=== PATIENT | male | born 1945 | race Caucasian/White ===

== ENCOUNTER 2016-05-18 19:50 | Observation (INO) | payer MEDICARE ==
[2016-05-18] MEDS ORDERED: Lidocaine 2% JELLY* 6 ML JELLY TOPICAL ONE (21:38)
[2016-05-18] MEDS ORDERED: Lidocaine 2% JELLY* 10 ML JELLY TOPICAL ONE (21:39)
[2016-05-18] MEDS ORDERED: Morphine INJ* 4 MG/ML 1 ML SYRINGE IV ONE (21:48)
[2016-05-18] MEDS ORDERED: Ondansetron INJ* 2 MG/ML VIAL IV ONE (21:48)
[2016-05-18] MEDS ORDERED: Al Hydrox/Mg Hydrox/Simet LIQ* 30 ML UDC PO ONE (22:09)
[2016-05-18] MEDS ORDERED: Lidocaine 2% VISCOUS* 15 ML UDC PO ONE (22:09)
[2016-05-18 22:15] LABS: Hematocrit 32 % (42-52); Hemoglobin 10.2 g/dl (14.0-18.0); Mean Corpuscular HGB Conc 32 g/dl (31-36); Mean Corpuscular Hemoglobin 24 pg (27-31); Mean Corpuscular Volume 75 fL (80-94); Mean Platelet Volume 7 um3 (7.4-10.4); Red Blood Count 4.26 10^6/ul (4.0-5.4); Red Cell Distribution Width 16 % (10.5-15); White Blood Count 13.9 10^3/ul (3.5-10.8)
[2016-05-18 22:30] LABS: Albumin 3.7 g/dL (3.2-5.2); BUN/Creatinine Ratio 16.4 (8-20); Calcium 8.4 mg/dL (8.6-10.3); EGFR African American 84.9 (>60); Globulin 2.5 g/dL (2-4); Total Bilirubin 0.8 mg/dL (0.2-1.0); Total Protein 6.2 g/dL (6.4-8.9)
[2016-05-18] MEDS ORDERED: NS 0.9% 1000 ML* 1,000 ML IV ONE (22:34)
[2016-05-18] MEDS ORDERED: Aspirin TAB* 325 MG PO ONE (22:34)
[2016-05-18] MEDS ORDERED: Potassium Chlor TAB* 20 MEQ TAB.ER PO ONE (22:36)
[2016-05-19 01:20] LABS: Urine Bacteria 1+ (Absent); Urine Bilirubin Negative (Negative); Urine Glucose Negative (Negative); Urine Nitrite Negative (Negative)
[2016-05-19] MEDS: Heparin VIAL(*) 5000 UNITS/ML VIAL (FIVE THOUSAND) SUBCUT SCH ×2 (05:26→14:01)
--- NOTE | 2016-05-19 09:23 | HP ---
HISTORY AND PHYSICAL: DATE OF ADMISSION: 05/19/16 PRIMARY CARE PHYSICIAN: Dr. Dieter Monroe. CHIEF COMPLAINT: Chest pain. HISTORY OF PRESENT ILLNESS: The patient is a 71-year-old gentleman, who actually came to the hospital today after suffering significant urinary retention. Apparently, he just had a procedure done at [facility] and upon getting home, he started developing significant pain in his penis. He came to the ER and was found to have urinary retention, where he received a Nunez and the pain was relieved. However, while lying, he developed epigastric discomfort. He felt it was burning pain and could not even say it was really pain and could not quantify on a scale of 0 to 10 and it was so insubstantial. Furthermore, when they even tried to give him a GI cocktail, the pain resolved so quickly on its own. He denied any associated symptoms, no shortness of breath, no sweating , no palpitations, no radiation. He says it is similar to the discomfort he gets when he has to take Pepcid for it. PAST MEDICAL HISTORY: Significant for bladder tumor being removed at [facility] 2 days ago, urinary retention that he just had, hyperlipidemia, hypertension, and hemochromatosis. CURRENT MEDICATIONS: 1. Losartan/hydrochlorothiazide 50/12.5 one tablet daily. 2. Pravastatin 40 mg in the evening. 3. Aspirin 81 mg daily. 4. Naproxen 500 mg twice daily. ALLERGIES: He has an allergy/adverse reaction to AMOXICILLIN, CIPROFLOXACIN, and LISINOPRIL. FAMILY HISTORY: Mother at 39 of uterine cancer. Father at 83 of natural causes. SOCIAL HISTORY: Quit tobacco 55 years ago, occasional alcohol, and no recreational drug use. He is retired. 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 He is . His , Pamela Almendarez, is his healthcare proxy. He has 3 children. REVIEW OF SYSTEMS: A 14-point review of systems was completed with the patient. All pertinent positives and negatives are in the history of present illness, otherwise it is negative. PHYSICAL EXAMINATION GENERAL: A pleasant gentleman, lying in bed, in no acute distress. VITAL SIGNS: Temperature 98.8 degrees, heart rate 72 beats per minute, respiratory rate 16 breaths per minute, pulse ox 99%, and blood pressure 184/88. HEENT: Normocephalic, atraumatic. Pupils are equal, round, and reactive to light. Moist mucous membranes. NECK: Supple. No JVD, bruits, palpable thyroid, or lymphadenopathy. CHEST: Clear to auscultation and percussion bilaterally. CARDIOVASCULAR: S1, S2 appreciated. Regular rate and rhythm. ABDOMEN: Positive bowel sounds in all 4 quadrants. Soft, nontender, and nondistended. EXTREMITIES: No cyanosis, clubbing, or edema. NEURO: Alert and oriented x3. Moves all extremities. SKIN: No rashes or abnormalities. DIAGNOSTIC STUDIES/LAB DATA: White count 13.9, hemoglobin 10.2, hematocrit 32 , and platelets 234. Sodium 124, potassium 3.0, chloride 91, CO2 24, BUN 18, creat 1.10, and glucose is 114. Urinalysis is +1 wbc's. EKG shows sinus rhythm at 70 beats per minute, normal axis, flipped T's in V3 through V6, otherwise nonspecific ST-T wave changes. ASSESSMENT AND PLAN: 1. Epigastric/chest pain: I think it is highly unlikely this is cardiac in etiology especially the way the patient describes it. It is very atypical. However, we will keep him in the hospital, cycle troponins, and rule him out. If it is negative, he can likely be discharged as early as tomorrow morning and follow up with his PCP for possible cardiac evaluation as an outpatient. 2. Urinary retention: Should discontinue Nunez in the morning and make sure the patient can void on his own. 3. Hypertension: Blood pressure is somewhat high, continue Hyzaar and hopefully the patient will improve, would adjust medication accordingly if necessary. 4. Hyperlipidemia: Continue Pravachol. 5. DVT prophylaxis: Heparin subcu. 6. The patient is a full code. TIME SPENT: Over 75 minutes was spent on this H and P, more than 40 minutes of which was spent in direct [id number] contact with the patient in evaluation, physical exam, counseling, and coordination of care. CC: Dr. Dieter Monroe * [id number]/[facility] #: [id number] MTDD
[2016-05-19 12:37] VITALS: BP 129/68
[2016-05-19 12:48] LABS: BUN/Creatinine Ratio 12.1 (8-20); Calcium 9.1 mg/dL (8.6-10.3); EGFR African American 87.6 (>60); EGFR Non-African American 68.1 (>60); Potassium 3.6 mmol/L (3.5-5.0)
[2016-05-19] MEDS ORDERED: Losartan TAB* 25 MG PO SCH (13:00)
[2016-05-19] MEDS ORDERED: Hydrochlorothiazide TAB* 25 MG PO SCH (13:00)
--- NOTE | 2016-05-19 14:27 | PN ---
Subjective Date of Service: 05/19/16 Interval History: Mr. Almendarez states that he feels well other than feeling anxious about being in the hospital. He denies chest pain, SOB, nausea, or abdominal pain. Objective Active Medications: Heparin Sodium (Porcine) (Heparin Vial(*)) 5,000 units SUBCUT Q8HR ROBERT Hydrochlorothiazide (Hydrodiuril Tab*) 12.5 mg PO DAILY ROBERT Losartan Potassium (Cozaar Tab*) 50 mg PO DAILY ROBERT Vital Signs 05/19/16 05/19/16 05/19/16 01:30 03:07 07:58 Temperature 97.8 F 98.4 F 98.6 F Pulse Rate 71 75 57 Respiratory 17 20 16 Rate Blood Pressure 133/59 148/69 129/60 (mmHg) O2 Sat by Pulse 96 96 97 Oximetry 05/19/16 11:16 Temperature Pulse Rate 60 Respiratory 18 Rate Blood Pressure 129/68 (mmHg) O2 Sat by Pulse 96 Oximetry Oxygen Devices in Use Now: None Appearance: Male lying in bed in NAD Respiratory: Symmetrical Chest Expansion and Respiratory Effort, Clear to Auscultation Cardiovascular: NL Sounds; No Murmurs; No JVD, No Edema Abdominal: NL Sounds; No Tenderness; No Distention Extremities: No Edema Skin: No Rash or Ulcers Neurological: Alert and Oriented x 3, NL Muscle Strength and Tone Nutrition: Taking PO's Result Diagrams: 05/18/16 22:00 05/19/16 12:22 Assess/Plan/Problems-Billing Assessment: Mr. Almendarez is a 71 yo male with a PMH of hypertension and hyperlipidemia with recent resection of bladder tumor who was admitted on 05/18/16 with urinary retention, brief epigastric pain, and EKG changes with T wave inversions in the V waves. - Patient Problems (1) Acute electrocardiogram changes Comment: T wave changes are non-dynamic, unchanged since admission though they are a change from 2013. Patient's trops are 0.00 x 3. He is asymptomatic. Recommend follow up with stress test outpatient. I offered to have stress testing here at the hospital but patient prefers to follow up at [place] through his PCP, Dr. Monroe. Continue home aspirin. (2) Epigastric abdominal pain Comment: A momentary discomfort in the ED. Patient states discomfort was exactly the same as his chronic heartburn. Plan to continue omeprazole and have outpatient stress testing. (3) Urinary retention Comment: S/p bladder tumor resection. Patient will need to continue velasquez due to bladder distention for approx 10 days and until follow up with urology. (4) Hypertension Comment: BP well controlled. Continue losartan and HCTZ. (5) Hyperlipidemia Comment: Continue pravastatin. Status and Disposition: OBV. Discharge to home.
--- NOTE | 2016-05-20 03:41 | DS ---
HOSPITAL MEDICINE DISCHARGE SUMMARY: DATE OF ADMISSION: 05/19/16 DATE OF DISCHARGE: 05/19/16 PRIMARY CARE PHYSICIAN: Dr. Monroe. ATTENDING PHYSICIAN: DO Alcides Macias(dictation provided by Whit Dowling NP) . PRIMARY DIAGNOSES: 1. Urinary retention, status post bladder tumor resection. 2. EKG changes with T-waves inversions in the V leads. SECONDARY DIAGNOSES: 1. Hyperlipidemia. 2. Hypertension. 3. Hemochromatosis. 4. Bladder tumor resection approximately 2 days ago at [place]. MEDICATIONS AT THE TIME OF DISCHARGE: 1. Losartan/hydrochlorothiazide 50/12.5 one tab p.o. daily. 2. Pravastatin 40 mg in the evening. 3. Aspirin 81 mg daily. 4. Naproxen 500 mg twice daily. HOSPITAL COURSE: Mr. Almendarez is a 71-year-old male with past medical history of hypertension, hyperlipidemia, and recent bladder tumor removal who presented to the hospital on 05/19/16 with concern for significant pain in his lower abdomen and penis. Please see the dictated H and P from Dr. Payam Bass for complete details. In brief, the patient had recently had bladder tumor surgery and developed urinary retention. Nunez catheter was placed in the emergency room with good results. While in the emergency room, however, he complained of a brief episode of epigastric pain. Because of this discomfort, he had an EKG, which showed T-wave inversions which were new since his last EKG in 2012 . His first troponin was 0. Mr. Almendarez was monitored in the hospital overnight. He had no evidence of arrhythmia noted on telemetry. He had two repeat troponins for a total of 3 troponins that were 0.00. He had no complaints of discomfort through the night. However, his EKG continued to show non-dynamic T-wave inversions without change. These T-wave inversions are new since 2013. The patient is completely asymptomatic. Denies any chest pain, shortness of breath, nausea, or any other anginal equivalent. I discussed this with the patient and his family that the EKG changes needed to be followed up. I offered to order an outpatient stress test here at our hospital as we do not perform stress test on the weekend. The patient stated that he preferred to follow up with Dr. Monroe regarding stress testing. I have told him that he should return to the hospital with any chest pain, shortness of breath, or any concerning symptom for more urgent stress testing while he is awaiting stress testing with Dr. Monroe at [place]. PLAN: Mr. Almendarez is medically stable today to follow up with Dr. Monroe for stress testing and also with Urology regarding urinary retention. DISPOSITION: To home. DIET: Heart healthy. ACTIVITIES: As tolerated. FOLLOWUP PLANS: 1. Please follow up with Dr. Monroe regarding stress testing. 2. Please follow up with his urologist regarding urinary retention and Nunez catheter. TIME SPENT: Approximately 60 minutes were spent on the discharge of this patient; more than half the time was spent with the patient at the bedside reviewing the events leading to this hospitalization, performing the physical examination, and reviewing my plan of care. WHIT DOWLING NP CC: Dr. Monroe* [id number]/[facility] #: [id number] [facility] CENTERNayeli
--- NOTE | 2016-05-23 22:44 | ED ---
Chandler Fishman Erika, scribed for Timothy Solis MD on 05/18/16 at 2346 . GI/ HPI - HPI Summary HPI Summary: Patient is a 71-year-old male presenting to the ED with his and daughter with a CC of lower abdominal pain. Patient reports that he had a tumor removal from his bladder yesterday at [facility] [facility], which used anesthesia. Patient was admitted ON, and was discharged today - pt was assessed at discharge and had catheter removed. When patient got home around 15:30 today, he had difficulty urinating. Patient reports he drank water to try to urinate, and developed worsening pressure pain in the lower abdomen. Patient also reports chills, nausea, and penile and testicular swelling. He states he felt constipated as well, and took stool softeners. He denies fever and vomiting. Prior to this exam , patient had a catheter placed and bladder emptied, and he states pain is gone. Patient also notes that he had a burning lower sternal chest pain today, which has resolved. He denies diaphoresis and pain in jaw or arm. Pt believes pain is GERD. Hx HTN, hyperlipidemia, BPH, hemochromatosis. Patient denies Hx diabetes. He denies FHx CAD. Patient is a former smoker. 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 - , daughter Onset/Duration: Started Hours Ago, Atraumatic, Still Present Timing: Constant Severity: Moderate Pain Intensity: 8 Location of Pain: Suprapubic Associated Signs and Symptoms: Positive: Nausea, Constipation, Chills, Abdominal Pain - Allergy/Home Medications Allergies/Adverse Reactions: Allergies Allergy/AdvReac Type Severity Reaction Status Date / Time Amoxicillin Allergy Intermediate Rash Verified 12/10/12 15:09 Ciprofloxacin [From Cipro] Allergy Intermediate Rash Verified 05/18/16 19:59 Lisinopril Allergy Intermediate Coughing Verified 05/18/16 19:59 Home Medications: Home Medications Aspirin [Aspirin 81 MG TAB] 81 mg PO QAM 05/19/16 [History Confirmed 05/19/16] Losartan Potassium & Hydrochlo [Hyzaar 50/12.5 mg] 1 tab PO QPM 05/19/16 [ History Confirmed 05/19/16] Naproxen [Naproxen 500 MG TABS] 500 mg PO BID 05/19/16 [History Confirmed ] Pravastatin Sodium [Pravachol] 40 mg PO QPM 05/19/16 [History Confirmed 05/19/16 ] PMH/Surg Hx/FS Hx/Imm Hx Endocrine/Hematology History: Reports: Other Endocrine/Hematological Disorders - hemochromatosis Cardiovascular History: Reports: Hx Hypercholesterolemia, Hx Hypertension History: Reports: Other Problems/Disorders - BPH Infectious Disease History: No Infectious Disease History: Denies: Traveled Outside the [place] in Last 30 Days - Family History Known Family History: Negative: Cardiac Disease - Social History Occupation: Retired Lives: With Family Hx Substance Use: No Substance Use Type: Reports: None Hx Tobacco Use: Yes Smoking Status (MU): Former Smoker Review of Systems Positive: Chills. Negative: Fever, Skin Diaphoresis Negative: Erythema Negative: Sore Throat Positive: Chest Pain - burning Negative: Shortness Of Breath, Cough Gastrointestinal: Other - constipated Positive: Abdominal Pain, Nausea. Negative: Vomiting Genitourinary: Other - penile and testicular swelling Positive: dysuria - and difficulty urinating. Negative: hematuria Negative: Myalgia, Edema Negative: Rash Neurological: Other - No dizziness All Other Systems Reviewed And Are Negative: Yes Physical Exam - Summary Physical Exam Summary: Constitutional: Well-developed, Well-nourished, Alert. (-) Distressed Skin: Warm, Dry HENT: Normocephalic; Atraumatic Eyes: Conjunctiva normal Neck: Musculoskeletal ROM normal neck. (-) JVD, (-) Stridor, (-) Tracheal deviation Cardio: Rhythm regular, rate normal, Heart sounds normal; Intact distal pulses; The pedal pulses are 2+ and symmetric. Radial pulses are 2+ and symmetric. (-) Murmur Pulmonary/Chest wall: Effort normal. (-) Respiratory distress, (-) Wheezes, (-) Rales Abd: Soft, (-) Tenderness, (-) Distension, (-) Guarding, (-) Rebound Musculoskeletal: (-) Edema Lymph: (-) Cervical adenopathy Neuro: Alert, Oriented x3 Psych: Mood and affect Normal Triage Information Reviewed: Yes Vital Signs On Initial Exam: Initial Vitals Temp Pulse Resp BP Pulse Ox 98.8 F 72 16 184/88 99 05/18/16 19:54 05/18/16 19:54 05/18/16 19:54 05/18/16 19:54 05/18/16 19:54 Vital Signs Reviewed: Yes Diagnostics - Vital Signs Vital Signs Temp Pulse Resp BP Pulse Ox 05/18/16 19:54 98.8 F 72 16 184/88 99 - Laboratory Lab Results: Lab Results 05/18/16 05/18/16 Range/Units 22:00 22:00 WBC 13.9 H (3.5-10.8) 10^3/ul RBC 4.26 (4.0-5.4) 10^6/ul Hgb 10.2 L (14.0-18.0) g/dl Hct 32 L (42-52) % MCV 75 L (80-94) fL MCH 24 L (27-31) pg MCHC 32 (31-36) g/dl RDW 16 H (10.5-15) % Plt Count 234 (150-450) 10^3/ul MPV 7 L (7.4-10.4) um3 Neut % (Auto) 81.3 (38-83) % Lymph % (Auto) 8.0 L (25-47) % [place] % (Auto) 9.8 H (1-9) % Eos % (Auto) 0.2 (0-6) % Baso % (Auto) 0.7 (0-2) % Absolute Neuts (auto) 11.3 H (1.5-7.7) 10^3/ul Absolute Lymphs (auto) 1.1 (1.0-4.8) 10^3/ul Absolute Monos (auto) 1.4 H (0-0.8) 10^3/ul Absolute Eos (auto) 0 (0-0.6) 10^3/ul Absolute Basos (auto) 0.1 (0-0.2) 10^3/ul Absolute Nucleated RBC 0 10^3/ul Nucleated RBC % 0 Sodium 124 L (133-145) mmol/L Potassium 3.0 L (3.5-5.0) mmol/L Chloride 91 L (101-111) mmol/L Carbon Dioxide 24 (22-32) mmol/L Anion Gap 9 (2-11) mmol/L BUN 18 (6-24) mg/dL Creatinine 1.10 (0.67-1.17) mg/dL Est GFR ( Amer) 84.9 (>60) Est GFR (Non-Af Amer) 66.0 (>60) BUN/Creatinine Ratio 16.4 (8-20) Glucose 114 H (70-100) mg/dL Calcium 8.4 L (8.6-10.3) mg/dL Total Bilirubin 0.80 (0.2-1.0) mg/dL AST 19 (13-39) U/L ALT 11 (7-52) U/L Alkaline Phosphatase 49 (34-104) U/L Troponin I 0.00 (<0.04) ng/mL Total Protein 6.2 L (6.4-8.9) g/dL Albumin 3.7 (3.2-5.2) g/dL Globulin 2.5 (2-4) g/dL Albumin/Globulin Ratio 1.5 (1-3) Result Diagrams: 05/18/16 22:00 05/19/16 12:22 Lab Statement: Any lab studies that have been ordered have been reviewed, and results considered in the medical decision making process. - EKG 22:27 Cardiac Rate: NL - at 70 bpm EKG Rhythm: Sinus Rhythm EKG Interpretation: No STEMI. T wave inversions V2-V6. GIGU Course/Dx - Course Assessment/Plan: Patient is a 71-year-old male presenting to the ED with a CC of abdominal pressure and urinary retention s/p bladder surgery. Pt was catheterized and bladder was emptied, and symptoms significantly improved. However, patient also complains of chest pain, and EKG shows T wave inversions in V2-V6. Patient has a Hx HTN and hyperlipidemia and is a former smoker. Initial troponin is 0.00. He is admitted to the hospital for further work up and management. - Diagnoses Provider Diagnoses: Acute electrocardiogram changes, Urinary retention - Physician Notifications Discussed Care Of Patient With: Dr. Bass (hospitalist) at 23:52 - agrees to admit Discharge - Discharge Plan Condition: Stable Disposition: ADMITTED TO [facility] documentation as recorded by the Chandler smith Erika accurately reflects the service I personally performed and the decisions made by , Timothy Solis MD.
== END 2016-05-19 15:31 | disposition home or self-care (01) ==
LOC: ED 19:50 → MEDTELE 05-19 00:35
PROVIDERS: ADMIT Internal Medicine; ATTEND Hospitalist
DX: R10.13 Epigastric pain (principal); R07.9 Chest pain, unspecified; R94.31 Abnormal electrocardiogram [ECG] [EKG]; T88.8XXA Other specified complications of surgical and medical care, not elsewhere classified, initial encounter; R33.9 Retention of urine, unspecified; Y83.8 Other surgical procedures as the cause of abnormal reaction of the patient, or of later complication, without mention of misadventure at the time of the procedure; I10 Essential (primary) hypertension; E78.5 Hyperlipidemia, unspecified; Z87.891 Personal history of nicotine dependence; Z79.82 Long term (current) use of aspirin; Z79.899 Other long term (current) drug therapy
CPT/HCPCS: 36415; 51702; 80048; 80053; 81003; 81015; 84484; 85025; 87086; 93005; 96361; 96372; 96374; 96375; 99284; A9270-GY; G0378; J1644